=== PATIENT | female | born 1985 | race Caucasian/White ===

== ENCOUNTER 2016-12-13 13:35 | Observation (INO) | payer OTHER ==
[~2016-12-13] VITALS: Ht 165.1 cm; Wt 81.6 kg
[2016-12-13 14:34] LABS: HEMOGLOBIN 13.6 gm/dl (12.3-15.3); RED BLOOD COUNT 4.49 M/UL (4.00-5.10); WHITE BLOOD COUNT 6.5 K/UL (4.5-11.0)
[2016-12-13 15:09] LABS: BUN/CREATININE RATIO 18 (0-10)
[2016-12-13] MEDS ORDERED: IBUPROFEN IB200 MG PO (19:20)
[2016-12-13] MEDS ORDERED: UNISOM25 MG PO (19:20)
[2016-12-14 02:18] LABS: HEMOGLOBIN 11.9 gm/dl (12.3-15.3); WHITE BLOOD COUNT 6.8 K/UL (4.5-11.0)
[2016-12-14 02:19] LABS: RED BLOOD COUNT 3.86 M/UL (4.00-5.10)
[2016-12-14 02:40] LABS: BUN/CREATININE RATIO 19 (0-10)
[2016-12-14] MEDS ORDERED: PRILOSEC OTC20 MG PO (11:43)
[2016-12-14] MEDS ORDERED: PRAVACHOL40 MG PO (11:45)
== END 2016-12-14 12:25 | disposition home or self-care (01) ==
LOC: ER1 13:35 → ZEROF 15:30 → PROG CARE 16:03 → ZEROF 16:03 → PROG CARE 18:04
PROVIDERS: Emergency Medicine; ADMIT Internal Medicine
DX: R07.89 Other chest pain (principal); I21.4 Non-ST elevation (NSTEMI) myocardial infarction; E66.3 Overweight; K21.9 Gastro-esophageal reflux disease without esophagitis; E78.5 Hyperlipidemia, unspecified; F17.290 Nicotine dependence, other tobacco product, uncomplicated; Z79.899 Other long term (current) drug therapy; Z98.61 Coronary angioplasty status; Z82.49 Family history of ischemic heart disease and other diseases of the circulatory system
CPT/HCPCS: ECHO; 36415; 71010; 80048; 80053; 80061; 82550; 82553; 83874; 84484; 85025; 85027; 85379; 93005; 93306; 99285; C1769; G0378; J1644; J2250; J3010; J7040; Q0163; Q9963